=== PATIENT | female | born 1950 | race Caucasian/White ===

== ENCOUNTER 2019-01-18 08:58 | Inpatient (IN) | payer OTHER ==
[~2019-01-18] VITALS: Ht 154.9 cm; Wt 47.6 kg
--- NOTE | ~2019-01-18 | EEG ---
[facility] [place] [address] [place] [address] ELECTROENCEPHALOGRAM Name: DEEPA MERA Room #: 350-P [facility] IN M.R.#: [id number] ������������������ Admission: 01/18/19 ������������������ Attend Phys: Jonn Moulton MD Discharge: 01/20/19 ������������������ Date of : 52 Report #: [id number] ����������������������������������������������������������������� [id number] THIS REPORT FOR: //name// CC: MAXIMO physician/PCP Jonn Moulton DATE OF SERVICE: 01/20/2019 INTERPRETATION: This patient is being evaluated for syncope. EEG was done by placing the electrodes by standard 10-20 system of electrode placement. Both referential and sequential montages were used for recording. Background activity in this patient's EEG is about 10 Hz and 30 microvolts. This patient became drowsy that is associated with bilateral slowing and vertex sharp waves. Photic stimulation was unremarkable. Throughout the record, no active epileptiform activity was noticed. IMPRESSION: This patient's EEG is within normal limits. Thank you very much for this referral. ���������������������������������������� ���������������������������������������� By: ��������������������������������������������� [phone] Jono Sherman MD /nt
[~2019-01-18 08:58] MED LIST: LEVOXYL75 MCG PO; PRED FORTE 1% EY5 M1 OPHTHALMIC
[2019-01-18 09:00] VITALS: BP 135/75
[2019-01-18 09:44] LABS: HEMATOCRIT 40.1 % (37.0-47.0); HEMOGLOBIN 13.5 gm/dL (12.0-15.0); MCH 31.4 pg (26.0-34.0); MCHC 33.7 g/dL (28.0-37.0); MCV 93.2 fL (80.0-100.0); RBC 4.31 mil/uL (4.20-5.00); RDW 13.1 % (10.5-14.5); WBC 7.8 thou/uL (4.0-11.0)
[2019-01-18 09:45] LABS: URINE BILIRUBIN NEGATIVE (Negative); URINE BLOOD NEGATIVE (Negative); URINE CLARITY CLEAR; URINE COLOR YELLOW; URINE GLUCOSE-RANDOM* NEGATIVE (Negative); URINE KETONES NEGATIVE (Negative); URINE LEUKOCYTES-REFLEX NEGATIVE (Negative); URINE NITRITE-REFLEX NEGATIVE (Negative); URINE PROTEIN (DIPSTICK) NEGATIVE (Negative); URINE SPECIFIC GRAVITY <= 1.005 (1.005-1.035); URINE UROBILINOGEN 0.2 E.U./dl (0.2-1.0)
[2019-01-18 09:54] LABS: ANION GAP 6 mmol/L (7-16); BUN 15 mg/dL (7-18); CALCIUM 9.4 mg/dL (8.5-10.1); CHLORIDE 101 mmol/L (98-107); CO2 30 mmol/L (21-32); CREATININE 0.8 mg/dL (0.6-1.0); GLUCOSE 129 mg/dL (74-106); POTASSIUM 4.1 mmol/L (3.5-5.1); SODIUM 137 mmol/L (136-145)
[2019-01-18 10:01] LABS: ALBUMIN 3.9 g/dL (3.4-5.0); SGOT 36 U/L (15-37); SGPT 30 U/L (30-65); TOTAL BILIRUBIN 0.7 mg/dL (<0.1-1.0); TOTAL PROTEIN 7.1 g/dL (6.4-8.2); TROPONIN-I <0.06 ng/mL (<0.06)
[2019-01-18 11:08] VITALS: BP 113/62
[2019-01-18 14:03] LABS: ALBUMIN 4.1 g/dL (3.4-5.0)
[2019-01-18 15:58] VITALS: BP 133/74
--- NOTE | 2019-01-18 16:10 | 2DMMODE ---
[facility] [address] [place] [address] 2 D/M-MODE ECHOCARDIOGRAM Name: DEEPA MERA Room #: 170-10 ADM IN ..#: [id number] ������������� Admission: 01/18/19 ������������� Attend Phys: Jonn Moulton, Discharge: ��� ������������� ��� Date of : 52 Date of Service: 01/18/19 1610 �� Report #: [id number] �������� ��������������������������������������������[id number] THIS REPORT FOR: //name// APPROVED REPORT Study performed: 01/18/2019 15:33:07 EXAM: Comprehensive 2D, Doppler, and color-flow Echocardiogram Patient Location: ER Room #: 10 Status: routine BSA: 1.44 HR: 53 bpm BP: 113/62 mmHg Rhythm: NSR Other Information Study Quality: Adequate Technically limited study due to inability to position patient. Indications Syncope 2D Dimensions RVDd: 25.08 mm IVSd: 7.24 (7-11mm) LVOT Diam: 19.91 (18-24mm) LVDd: 42.58 mm PWd: 9.00 (7-11mm) LVDs: 27.12 (25-40mm) Aortic Root: 28.82 mm IVC: 20.00 mm Volumes Left Atrial Volume (Systole) Single Plane 4CH: 28.42 mL Single Plane 2CH: 17.40 mL LA ESV Index: 17.00 mL/m2 Aortic Valve AoV Peak Umesh.: 1.11 m/s AO Peak Gr.: 4.92 mmHg LVOT Max P.88 mmHg LVOT Max V: 0.98 m/s DANA Vmax: 2.76 cm2 Mitral Valve E/A Ratio: 1.2 [facility] [address] [place] [address] 2 D/M-MODE ECHOCARDIOGRAM Name: DEEPA MERA Room #: 170-10 ADM IN [facility].#: [id number] ������������� Admission: 01/18/19 ������������� Attend Phys: Jonn Moulton, Discharge: ��� ������������� ��� Date of : 52 Date of Service: 01/18/19 1610 �� Report #: [id number] �������� ��������������������������������������������[id number] MV Decel. Time: 189.04 ms MV E Max Umesh.: 0.77 m/s MV A Umesh.: 0.63 m/s MV PHT: 54.82 ms IVRT: 115.34 ms Pulmonary Valve PV Peak Umesh.: 0.78 m/s PV Peak Gr.: 2.49 mmHg Pulmonary Vein P Vein S: 0.51 m/s P Vein A: 0.25 m/s P Vein D: 0.27 m/s P Vein A Dur.: 106.1 msec P Vein S/D Ratio: 1.89 Tricuspid Valve TR Peak Umesh.: 2.15 m/s RAP Estimate: 5.00 mmHg TR Peak Gr.: 18.57 mmHg PA Pressure: 24.00 mmHg Left Ventricle The left ventricle is normal size. There is normal left ventricular wall thickness. The left ventricular systolic function is normal. The left ventricular ejection fraction is within the normal range. LVEF is 55%. The left ventricular diastolic function is normal. Right Ventricle The right ventricle is normal size. The right ventricular systolic function is normal. Atria The left atrium size is normal. The right atrium size is normal. Aortic Valve The aortic valve is normal in structure. Trace aortic regurgitation. There is no aortic valvular stenosis. Mitral Valve The mitral valve is normal in structure. There is no mitral valve regurgitation noted. No evidence of mitral valve stenosis. Tricuspid Valve The tricuspid valve is normal in structure. Mild tricuspid regurgitation. PAP is estimated at 24 mmHg. Pulmonic Valve [address] [address] 2 D/M-MODE ECHOCARDIOGRAM Name: DEEPA MERA Room #: 170-10 ADM IN .R.#: [id number] ������������� Admission: 01/18/19 ������������� Attend Phys: Jonn Moulton, Discharge: ��� ������������� ��� Date of : 52 Date of Service: 01/18/19 1610 �� Report #: [id number] �������� ��������������������������������������������[id number] Pulmonic valve is not well visualized. Great Vessels The aortic root is normal in size. IVC is normal in size and collapses >50% with inspiration. Pericardium There is no pericardial effusion. <Conclusion> The left ventricle is normal size. LVEF is 55%. The aortic valve is normal in structure. Trace aortic regurgitation. The mitral valve is normal in structure. The tricuspid valve is normal in structure. Mild tricuspid regurgitation. PAP is estimated at 24 mmHg. Pulmonic valve is not well visualized. There is no pericardial effusion. ��������������������������������������������� <ELECTRONICALLY SIGNED> ���������������������������������������� By: Larry Collins MD ��������������������������������������������� 01/18/19 [phone] Larry Collins MD /INF
--- NOTE | 2019-01-18 18:44 | NUR ---
ARRIVED FROM ED VIA CART. ACCOMPANIED BY SPOUSE. VERY PLEASANT AND COOPERATIVE AAX4. ORIENTED TO ROOM AND IMPORTANCE OF USING CALL LIGHT. SALINE LOCK IN RIGHT AC. GOOD APPETITE FOR DINNER. AMBULATED TO BR WITH SBA, SLOW STEADY GAIT. NO C/O PAIN OR DIZZYNESS. REPORTS RIGHT SIDE OF NECK FEELS STIFF. SMALL ABRASION ON LEFT FOREHEAD AND UNDER LEFT EYE.
[2019-01-18 19:15] VITALS: BP 108/67
--- NOTE | 2019-01-18 23:28 | EKG ---
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[place] : 1950 Requested By: Alina Angeles Order Number: [id number] MD: Larry Collins Measurements Intervals [place] Rate: 65 P: 28 MS: 116 QRS: 41 QRSD: 77 T: 41 QT: 401 QTc: 417 Interpretive Statements Sinus rhythm Borderline short MS interval Low voltage, precordial leads early repolarization nonspecific st/t wave changes Compared to ECG 08/15/2016 09:11:29 no significant changes Electronically Signed On 01-18-2019 23:28:05 CDT by Larry Collins [email or web address] ��������������������������������������������� <ELECTRONICALLY SIGNED> ���������������������������������������� By: Larry Collins MD ��������������������������������������������� 01/18/19 2328 0946 0946 Larry Collins MD /EPI
[2019-01-19 04:40] VITALS: BP 110/67
[2019-01-19 05:24] LABS: HEMATOCRIT 37.3 % (37.0-47.0); HEMOGLOBIN 12.6 gm/dL (12.0-15.0); MCH 31.7 pg (26.0-34.0); MCHC 33.6 g/dL (28.0-37.0); MCV 94.2 fL (80.0-100.0); RBC 3.96 mil/uL (4.20-5.00); RDW 13.5 % (10.5-14.5); WBC 5.4 thou/uL (4.0-11.0)
[2019-01-19 05:33] LABS: CALCIUM 8.8 mg/dL (8.5-10.1); CREATININE 0.9 mg/dL (0.6-1.0); MAGNESIUM 2.1 mg/dL (1.8-2.4)
--- NOTE | 2019-01-19 07:33 | NUR ---
PATIENT IS PROGRESSING IN HER CARE PLAN. VITAL SIGNS STABLE WITH PATIENT HAVING NO COMPLAINTS OF PAIN OR NAUSEA. FULLY ORIENTED, PATIENT WAS ABLE TO CALL APPROPRIATELY FOR NEEDS AND PARTICIPATE IN CARE PLAN. PATIENT WAS ABLE TO AMBULATE TO THE RESTROOM MULTIPLE TIMES WITH ASSISTANCE INCIDENT FREE. SHE DID STATE SOME MILD DIZZINESS WHEN WALKING. PATIENT REFUSED MECLIZINE AT 0600 THIS SHIFT DUE TO IT MAKING HER "DROWSY." NURSE TRIED TO EDUCATE PATIENT ON THE RATIONALE OF THIS MEDICATION TO NO AVAIL. CONTINUE PLAN OF CARE.
[2019-01-19 08:25] VITALS: BP 100/66
--- NOTE | 2019-01-19 15:22 | NUR ---
Assumed care of Pt at 0700. Pt AOx4 in no acute distress. reports feeling better today and that nausea has largely subsided. up w/ steady gait. stress test today followed by EEG per neuro rec. SB/SR on telemetry. no longer wants to take meclizine due to sedative effect - physician aware. will cont to monitor. pt progressing toward poc goals.
[2019-01-19 15:57] VITALS: BP 128/75
[2019-01-19] MEDS ORDERED: ANTIVERT25 MG PO (18:29)
[2019-01-19 20:18] VITALS: BP 120/77
--- NOTE | 2019-01-20 04:14 | NUR ---
PATIENT IS PROGRESSING IN HER CARE PLAN. VITAL SIGNS STABLE WITH PATIENT HAVING NO COMPLAINTS OF PAIN OR NAUSEA. FULLY ORIENTED, PATIENT IS ABLE TO CALL APPROPRIATELY FOR NEEDS. PATIENT EXPRESSED SADNESS AND ANXIETY DUE TO INABILITY TO UNDERSTAND THE ROOT CAUSE OF DIZZINESS. UP MULTIPLE TIMES WITH ASSISTANCE INCIDENT FREE. PATIENT WAS ABLE TO SHOWER DURING EARLY PART OF SHIFT BUT REPORTED FEELING EXTREMELY DIZZY WHEN BEING HELPED BACK TO BED. PATIENT IS A HIGH FALL RISK. PATIENT IS ANXIOUS FOR TODAYS PROCEDURES AND TO POSSIBLY GO HOME TODAY. CONTINUE PLAN OF CARE.
[2019-01-20 04:27] VITALS: BP 110/67
[2019-01-20 05:47] LABS: HEMATOCRIT 38.7 % (37.0-47.0); HEMOGLOBIN 13.1 gm/dL (12.0-15.0); MCH 31.8 pg (26.0-34.0); MCHC 33.9 g/dL (28.0-37.0); MCV 93.5 fL (80.0-100.0); RBC 4.14 mil/uL (4.20-5.00); RDW 13.2 % (10.5-14.5); WBC 5.2 thou/uL (4.0-11.0)
[2019-01-20 06:08] LABS: CALCIUM 8.9 mg/dL (8.5-10.1); CREATININE 0.8 mg/dL (0.6-1.0); POTASSIUM 4.2 mmol/L (3.5-5.1)
[2019-01-20 08:21] VITALS: BP 100/67
[2019-01-20 12:12] VITALS: BP 100/67
--- NOTE | 2019-01-20 14:32 | NUR ---
PT ALERT AND ORIENTED TIMES FOUR. VSS, 98%RA, SR ON TELE, PT DENIES PAIN/SOA. PT UP WITH STANDBY ASSIST. PT TOLERATES MEDS AND MEALS. EEG DONE THIS MORNING. PLANS FOR DISCARGE TODAY.
== END 2019-01-20 13:29 | disposition home or self-care (01) | DRG 312 ==
LOC: ER 08:58 → EROBS 13:08 → 3W 13:08 → ENTRNSPT 01-20 13:19 → EDTRNSPTSTS 01-20 13:27 → 3W 01-20 13:29
PROVIDERS: Student in an Organized Health Care Education/Training Program; ADMIT Internal Medicine
DX: R55 Syncope and collapse (principal); H20.9 Unspecified iridocyclitis; H93.19 Tinnitus, unspecified ear; E05.00 Thyrotoxicosis with diffuse goiter without thyrotoxic crisis or storm; E03.9 Hypothyroidism, unspecified; M47.892 Other spondylosis, cervical region; H91.90 Unspecified hearing loss, unspecified ear; Z79.899 Other long term (current) drug therapy; Z88.6 Allergy status to analgesic agent; Z88.1 Allergy status to other antibiotic agents; Z88.5 Allergy status to narcotic agent; Z88.2 Allergy status to sulfonamides; Z82.49 Family history of ischemic heart disease and other diseases of the circulatory system; Z86.73 Personal history of transient ischemic attack (TIA), and cerebral infarction without residual deficits
CPT/HCPCS: 10879

== ENCOUNTER → 2019-02-03 | Outpatient (CLI) | payer OTHER ==
[~2019-02-03] MED LIST changes: +ANTIVERT25 MG PO
--- NOTE | 2019-02-15 12:57 | LINQ ---
[facility] [address] [place] [address] [employer] PROCEDURE REPORT Name: SAMARIADEEPA Room #: REG CL Giana#: [id number] ������������� Admission: 02/03/19 ������������� Attend Phys: Larry Rivas Discharge: ��� ������������� ��� Date of : 52 Date of Service: 02/15/19 1256 �� Report #: [id number] �������� ��������������������������������������������[id number] THIS REPORT FOR: //name// APPROVED REPORT Study performed: 02/04/2019 08:21:15 Patient Status: Out-Patient Room #: Event Personnel: Larry Collins MD Exam: Loop Recorder Implant Indications: Syncope Implanted Devices: [employer]: Confirm Rx; REF. # [id number]; SN: [id number]; Expiration: Procedure The patient underwent informed consent. We discussed the details of the procedure including the risks, which include, but not limited to bleeding, infection, vascular damage, cardiac perforation, and pneumothorax. After informed consent was obtained the patient was brought to the catheterization laboratory prep and hold. The chest was prepped and draped in usual sterile manner. One percent lidocaine was then utilized to anesthetize the skin and the proposed pocket tract. Utilizing 11 blade a small incision was made. Utilizing blunt dissection a pocket was developed. The deployment total was then utilized to put a device subcutaneously in its place. Saphenous tissues and closed with 2 simple interrupted sutures. Skin closed with a running subcuticular absorbable suture. 4 x 4's were placed after Steri-Strips are in position as well as an OpSite was placed subsequently. Patient tolerated procedure well there were no complications Conclusion 1. Successful implantation of a [employer] Jamar's implantable loop recorder Recommendations 1. Proceed per routine post implantation protocol ��������������������������������������������� <ELECTRONICALLY SIGNED> ���������������������������������������� By: Larry Collins MD ��������������������������������������������� 02/15/19 1256 1256 1256 Larry Collins MD /INF
== END | disposition home or self-care (01) ==
LOC: CATH 11:25
DX: R55 Syncope and collapse (principal)

== ENCOUNTER → 2020-03-07 | Outpatient (CLI) | payer OTHER | LOC: SJCVC 10:11 | DX: R07.9 Chest pain, unspecified (principal); K21.9 Gastro-esophageal reflux disease without esophagitis; R55 Syncope and collapse; E05.00 Thyrotoxicosis with diffuse goiter without thyrotoxic crisis or storm ==

== ENCOUNTER 2021-06-22 20:52 | Emergency (ER) | payer OTHER ==
[~2021-06-22] VITALS: Ht 154.9 cm; Wt 52.2 kg
[2021-06-22 20:53] VITALS: BP 143/75
--- NOTE | 2021-06-23 09:50 | EKG ---
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
== END 2021-06-22 22:30 | disposition home or self-care (01) ==
LOC: ER 20:52
DX: R55 Syncope and collapse (principal); M19.90 Unspecified osteoarthritis, unspecified site; Z90.89 Acquired absence of other organs; Z79.899 Other long term (current) drug therapy; Z88.6 Allergy status to analgesic agent; Z88.5 Allergy status to narcotic agent; Z88.2 Allergy status to sulfonamides; Z88.0 Allergy status to penicillin